=== PATIENT | female | born 1940 | race Caucasian/White ===

== ENCOUNTER 2020-07-12 18:56 | Emergency (ER) | payer MEDICARE ==
[2020-07-12] MEDS ORDERED: Phenazopyridine 200 MG Tab PO ONE (19:42)
[2020-07-12] MEDS ORDERED: Sulfamethoxazole/Trimethoprim 800-160 MG Tab PO ONE (19:43)
--- NOTE | 2020-07-12 19:45 | EDM.PDOC ---
ED HPI GENERAL MEDICAL PROBLEM - General Chief Complaint: Genitourinary Problem Stated Complaint: BLADDER OR YEAST INFECTION Time Seen by Provider: 07/12/20 19:22 Source of Information: Reports: Patient History Limitations: Reports: No Limitations - History of Present Illness INITIAL COMMENTS - FREE TEXT/NARRATIVE: HISTORY AND PHYSICAL: History of present illness: Patient is an 79-year-old female who presents to the emergency room with complaints of dysuria and vaginal itching x2 days. She states she had a yeast infection a few days ago and did do vaginal insert medication which she states had improved. Yesterday she started having some dysuria and frequency, concerned she has a bladder infection. She does have some mild itching starting again and is concerned with any antibiotic use her yeast infection may return. Patient denies any fever, chills, headache, change in vision, syncope or near syncope. Denies any chest pain, back pain, shortness of breath or cough. Denies any abdominal pain, nausea, vomiting, diarrhea, constipation nor vaginal discharge/concern of STIs. Has not noted any blood in urine or stool. Patient has been eating and drinking appropriately. Review of systems: As per history of present illness and below otherwise all systems reviewed and negative. Past medical history: As per history of present illness and as reviewed below otherwise noncontributory. Surgical history: As per history of present illness and as reviewed below otherwise noncontributory. Social history: See social history for further information Family history: As per history of present illness and as reviewed below otherwise noncontributory. Physical exam: General: Well developed and well nourished. Alert and orientated x 3. Nontoxic in appearance and in no acute distress. Vital signs are stable and have been reviewed by me. Nursing notes were reviewed. HEENT: Atraumatic, normocephalic, pupils equal and reactive bilaterally, negative for conjunctival pallor or scleral icterus, mucous membranes moist, TMs normal bilaterally, throat clear, neck supple, nontender, trachea midline. No drooling or trismus noted. No meningeal signs. No hot potato voice noted. Lungs: Clear to auscultation bilaterally. No wheezes, rales, or rhonchi. Chest nontender. Normal work of breathing, no accessory muscles used. Heart: S1S2, regular rate and rhythm without overt murmur, gallops, or rubs. No JVD. No peripheral edema Abdomen: Soft, nondistended, nontender. Normoactive bowel sounds. Negative for masses or costovertebral tenderness. Pelvis: Stable nontender. Genitourinary/Rectal: Deferred. Skin: Intact, warm, dry. No lesions or rashes noted. Hematologic: No petechiae or purpra. Mucosa appropriate color and normal nail bed color and refill. Extremities: Atraumatic, moves all extremities per self without difficulty or deficits, negative for cords or calf pain. Neurovascular unremarkable. Neuro: Awake, alert, oriented. Cranial nerves II through XII unremarkable. Cerebellum unremarkable. Motor and sensory unremarkable throughout. Exam nonfocal. Psychiatric: Mood and affect are appropriate. Normal thought process. Answering questions appropriately. Notes: *This patient was seen and evaluated during the 2019 SARS-CoV-2 novel coronavirus pandemic period. Community viral transmission is ongoing at time of this encounter and the emergency department is operating under pandemic response procedures. I have talked with the patient about today's findings, in addition to providing specific details for plan of care. Reassessment at the time of disposition demonstrates that the patient is in no acute distress. The patient is stable for discharge, counseling was provided and we discussed in great detail signs and symptoms that would prompt them to return to the Emergency Department. Medication, follow up and supportive care measures were reviewed and discussed. Voices understanding and is agreeable to plan of care. Denies any further ques tions or concerns at this time. Diagnostics: UA/UC Therapeutics: Diflucan, Bactrim, Pyridium Prescription: Diflucan, Bactrim, Pyridium Impression: Yeast infection UTI Plan: 1. You have a bladder infection. Please take the medications as directed. 2. You can alternate Tylenol and/or ibuprofen as needed for pain or fever management. 3. We always encourage you to follow up with your primary care provider in the next few days for re-evaluation and further care/management. 4. If your symptoms should worsen, new symptoms develop or any of the signs and symptoms we discussed should arise please return to the emergency room or call 911 (if needed). Definitive disposition and diagnosis as appropriate pending reevaluation and review of above. urination Pain Score (Numeric/FACES): 5 - Related Data Allergies Allergy/AdvReac Type Severity Reaction Status Date / Time chocolate flavor Allergy Headache Verified 07/12/20 19:39 shellfish derived Allergy Stomach Verified 07/12/20 19:39 Upset Home Meds: Home Meds Fluconazole [Diflucan] 150 mg PO ONETIME #2 tablet 07/12/20 [Rx] Phenazopyridine HCl [Pyridium] 100 mg PO TID 2 Days #6 tablet 07/12/20 [Rx] Sulfamethoxazole/Trimethoprim [Bactrim Ds Tablet] 1 each PO BID 5 Days #10 tablet 07/12/20 [Rx] Past Medical History HEENT History: Reports: None Cardiovascular History: Reports: Hypertension, Other (See Below) Other Cardiovascular History: Heart Attack Respiratory History: Reports: None Gastrointestinal History: Reports: None Genitourinary History: Reports: None EMT History: Reports: None Musculoskeletal History: Reports: None, Other (See Below) Other Musculoskeletal History: Back Surgery Neurological History: Reports: None Psychiatric History: Reports: None Endocrine/Metabolic History: Reports: None 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 Hematologic History: Reports: None Immunologic History: Reports: None Oncologic (Cancer) History: Reports: Breast Dermatologic History: Reports: None - Infectious Disease History Infectious Disease History: Reports: None - Past Surgical History HEENT Surgical History: Reports: Naso-Sinus Surgery Female Surgical History: Reports: None Oncologic Surgical History: Reports: Lumpectomy Social & Family History - Family History Cardiac: Reports: None - Caffeine Use Caffeine Use: Reports: None - Recreational Drug Use Recreational Drug Use: No ED ROS GENERAL - Review of Systems Review Of Systems: Comprehensive ROS is negative, except as noted in HPI. ED EXAM, RENAL/ - Physical Exam Exam: See Below (See dictation) Course - Vital Signs Last Recorded V/S: Last Vital Signs Temp 98 F 07/12/20 19:20 Pulse 73 07/12/20 20:15 Resp 18 07/12/20 20:15 BP 143/73 H 07/12/20 20:15 Pulse Ox 97 07/12/20 20:15 - Orders/Labs/Meds Labs: Laboratory Tests 07/12/20 Range/Units 19:20 Urine Color YELLOW Urine Appearance CLOUDY Urine pH 6.0 (5.0-8.0) Ur Specific [place] >= 1.030 (1.001-1.035) Urine Protein >=300 H (NEGATIVE) mg/dL Urine Glucose (UA) NEGATIVE (NEGATIVE) mg/dL Urine Ketones TRACE H (NEGATIVE) mg/dL Urine Occult Blood LARGE H (NEGATIVE) Urine Nitrite POSITIVE H (NEGATIVE) Urine Bilirubin NEGATIVE (NEGATIVE) Urine Urobilinogen 1.0 (<2.0) EU/dL Ur Leukocyte Esterase MODERATE H (NEGATIVE) Urine RBC 20-30 (0-2/HPF) Urine WBC TO NUMEROUS TO COUNT H (0-5/HPF) Ur Epithelial Cells FEW (NONE-FEW) Urine Bacteria 3+ H (NEGATIVE) Meds: Medications Discontinued Medications Generic Name Dose Route Start Last Admin Trade Name Matthewq PRN Reason Stop Dose Admin Fluconazole 150 mg 07/12/20 19:47 07/12/20 20:06 Fluconazole 150 Mg Tab PO 07/12/20 19:48 Not Given ONETIME ONE Fluconazole Confirm 07/12/20 20:01 07/12/20 20:05 Fluconazole 100 Mg Tab Administered 07/12/20 20:02 Not Given Dose 100 mg .ROUTE .STK-MED ONE Fluconazole 100 mg 07/13/20 09:00 07/12/20 20:05 Fluconazole 100 Mg Tab PO 100 mg DAILY VERITO Administration Phenazopyridine HCl 200 mg 07/12/20 19:42 07/12/20 20:05 Phenazopyridine 200 Mg Tab PO 07/12/20 19:43 200 mg ONETIME ONE Administration Trimethoprim/Sulfamethoxazole 1 tab 07/12/20 19:43 07/12/20 20:05 Sulfamethoxazole/Trimethoprim 800-160 Mg Tab PO 07/12/20 19:44 1 tab ONETIME ONE Administration Departure - Departure Time of Disposition: 19:44 Disposition: Home, Self-Care 01 Clinical Impression: UTI, Urinary tract infectious disease, Yeast infection - Discharge Information Prescriptions: Sulfamethoxazole/Trimethoprim [Bactrim Ds Tablet] 1 each PO BID 5 Days #10 tablet Fluconazole [Diflucan] 150 mg PO ONETIME #2 tablet Phenazopyridine HCl [Pyridium] 100 mg PO TID 2 Days #6 tablet Instructions: Urinary Tract Infection, Adult, [id number] Referrals: PCP,Not In Area [Primary Care Provider] - Forms: ED Department Discharge Additional Instructions: The following information is given to patients seen in the emergency department who are being discharged to home. This information is to outline your options for follow-up care. We provide all patients seen in our emergency department with a follow-up referral. The need for follow-up, as well as the timing and circumstances, are variable depending upon the specifics of your emergency department visit. If you don't have a primary care physician on staff, we will provide you with a referral. We always advise you to contact your personal physician following an emergency department visit to inform them of the circumstance of the visit and for follow-up with them and/or the need for any referrals to a consulting specialist. The emergency department will also refer you to a specialist when appropriate. This referral assures that you have the opportunity for follow-up care with a specialist. All of these measure are taken in an effort to provide you with optimal care, which includes your follow-up. Under all circumstances we always encourage you to contact your private physician who remains a resource for coordinating your care. When calling for follow-up care, please make the office aware that this follow-up is from your recent emergency room visit. If for any reason you are refused follow-up, please contact the [facility] Emergency Department at and asked to speak to the emergency department charge nurse. [facility] [address] [place] [address] [place] [address] Thank you for choosing the [facility] emergency department in [place] for your medical needs today. It was a pleasure caring for you. Today you were seen in the emergency department for UTI. 1. You have a bladder infection. Please take the medications as directed. 2. You can alternate Tylenol and/or ibuprofen as needed for pain or fever management. 3. We always encourage you to follow up with your primary care provider in the next few days for re-evaluation and further care/management. 4. If your symptoms should worsen, new symptoms develop or any of the signs and symptoms we discussed should arise please return to the emergency room or call 911 (if needed). Sepsis Event Note (ED) - Evaluation Sepsis Screening Result: No Definite Risk
[2020-07-12] MEDS ORDERED: Fluconazole 150 MG Tab PO ONE (19:47)
[2020-07-12] MEDS ORDERED: Fluconazole 100 MG Tab ONE (20:01)
[2020-07-13] MEDS ORDERED: Fluconazole 100 MG Tab PO SCH (09:00)
== END 2020-07-12 20:15 | disposition home or self-care (01) ==
LOC: MW.ED 18:56
DX: B37.49 Other urogenital candidiasis (principal); I10 Essential (primary) hypertension; Z91.018 Allergy to other foods; Z91.013 Allergy to seafood
CPT/HCPCS: 81001; 87086; 99283; A9270